=== PATIENT | male | born 1940 | race American Indian/Alaskan Native ===

== ENCOUNTER 2017-06-05 11:50 | Emergency (ER) | payer MEDICARE ==
[2017-06-05] MEDS ORDERED: ZOFRAN IV ONE (12:28)
--- NOTE | 2017-06-05 12:55 | Emergency Department Report ---
HPI - General Chief Complaint: Nausea/Vomiting/Diarrhea Time Seen by Provider: 06/05/17 12:19 - HPI HPI: Room 8 The patient is a 77-year-old male presented with a chief complaint of nausea and vomiting. The patient is a very poor historian but acknowledges he has had a headache with nausea vomiting for the past 2-3 days. Patient denies chest pain. The patient's primary physician sent the patient to the ED after the patient failed outpatient therapy for the above symptoms. Primary physician documents acute renal failure, prerenal azotemia, uncontrolled diabetes and headache. When further questions are asked about the HPI the patient continues to to state "ask my ." The is not currently present Location: Head Duration: 3 days Quality: Headache Severity: Moderate Modifying factors: [see above] Context: [see above] Mode of transportation: [not driving] ED Past Medical Hx - Family History Family history: no significant ED Review of Systems ROS: Stated complaint: HEADACHE Other details as noted in HPI Comment: Unobtainable due to pts medical conditions Gastrointestinal: nausea, vomiting Neurological: headache Physical Exam - Physical Exam Physical Exam: GENERAL: The patient is well-developed well-nourished male lying on stretcher with frequent gagging. [] HEENT: Normocephalic. Atraumatic. Extraocular motions are intact. Patient has moist mucous membranes. NECK: Supple. No meningitic signs are noted. Trachea midline CHEST/LUNGS: Clear to auscultation. There is no respiratory distress noted. HEART/CARDIOVASCULAR: Regular. There is no tachycardia. There is no gallop rub or murmur. ABDOMEN: Abdomen is soft, nontender. Patient has normal bowel sounds. There is no abdominal distention. SKIN: There is no rash. There is no edema. There is no diaphoresis. NEURO: The patient is awake, alert, and oriented. The patient is cooperative. The patient has no focal neurologic deficits. The patient has normal speech. Cranial nerves II through XII grossly intact, no drift. Moves all extremities well MUSCULOSKELETAL: There is no evidence of acute injury. ED Course - Consultations Consultation #1: 06/05/17 15:00 [place] transfer line called- awaiting call back 06/05/17 15:[address] Lee- will accept patient in transfer to [facility] ED. Recommends given Keppra 1 g IV ED Medical Decision Making - Lab Data Result diagrams: 10/26/17 12:20 06/05/17 13:50 Laboratory Tests 06/05/17 06/05/17 06/05/17 12:20 13:20 13:50 WBC 19.0 H RBC 5.09 H Hgb 15.6 H Hct 45.3 MCV 89 MCH 31 MCHC 35 H RDW 13.2 Plt Count 344 Lymph % (Auto) 3.3 L [place] % (Auto) 6.4 Eos % (Auto) 0.0 Baso % (Auto) 0.5 Lymph # 0.6 L [place] # 1.2 H Eos # 0.0 Baso # 0.1 Seg Neutrophils % 89.8 H Seg Neutrophils # 17.1 H Sodium 136 L Potassium 3.6 Chloride 96.0 L Carbon Dioxide 26 Anion Gap 18 BUN 18 Creatinine 0.7 L Estimated GFR > 60 BUN/Creatinine Ratio 26 Glucose 247 H Calcium 8.7 Total Bilirubin 0.90 AST 23 ALT 19 Alkaline Phosphatase 77 Total Creatine Kinase 457 H CK-MB (CK-2) 4.1 H CK-MB (CK-2) Rel Index 0.8 Troponin T < 0.010 Total Protein 6.6 Albumin 3.7 L Albumin/Globulin Ratio 1.3 Urine Color Yellow Urine Turbidity Clear Urine pH 6.0 Ur Specific [place] 1.028 Urine Protein 100 mg/dl Urine Glucose (UA) >=500 Urine Ketones 80 Urine Blood Mod Urine Nitrite Neg Urine Bilirubin Neg Urine Urobilinogen < 2.0 Ur Leukocyte Esterase Neg Urine WBC (Auto) < 1.0 Urine RBC (Auto) 2.0 Urine Mucus 2+ - Radiology Data Radiology results: report reviewed (CT head), image reviewed (CT head) CT head (read by radiologist)-subacute right subdural hemorrhage. Volume loss. Chronic white matter changes. - Differential Diagnosis ICH, migraine, ACS, renal failure Critical care attestation.: If time is entered above; I have spent that time in minutes in the direct care of this critically ill patient, excluding procedure time. ED Disposition Clinical Impression: Subdural hematoma, Headache, Nausea & vomiting Disposition: DC/TX-70 ANOTHER TYPE HLTHCARE Is pt being admited?: No Does the pt Need Aspirin: No Condition: Serious Referrals: PRIMARY CARE, [Primary Care Provider] - 3-5 Days Time of Disposition: 15:14 (awaiting transport)
[2017-06-05 14:06] LABS: Bilirubin,Urine NEG (Negative); Blood,Urine MOD (Negative); Ketones,Urine 80 mg/dL (Negative); Leukocyte Esterase,Urine NEG (Negative); Mucus,Urine 2+ /HPF; Nitrite,Urine NEG (Negative); Urobilinogen,Urine < 2.0 mg/dL (<2.0); WBC,Urine < 1.0 /HPF (0.0-6.0)
[2017-06-05 14:21] LABS: Creatine Kinase MB 4.1 ng/mL (0.0-4.0)
[2017-06-05 14:22] LABS: Alanine Aminotransferase 19 units/L (7-56); Albumin 3.7 g/dL (3.9-5); Albumin/Globulin Ratio 1.3 %; Alkaline Phosphatase 77 units/L (35-129); Anion Gap 18 mmol/L; BUN/Creatinine Ratio 26; Blood Urea Nitrogen 18 mg/dL (9-20); Calcium 8.7 mg/dL (8.4-10.2); Carbon Dioxide 26 mmol/L (22-30); Creatine Kinase 457 units/L (55-170); Glucose 247 mg/dL (75-100); Potassium 3.6 mmol/L (3.6-5.0); Sodium 136 mmol/L (137-145); Total Protein 6.6 g/dL (6.3-8.2)
--- NOTE | 2017-06-05 14:49 | Cat Scan Report ---
CT HEAD WITHOUT CONTRAST: HISTORY: Headache, nausea and vomiting. Serial contiguous axial images were obtained through the cranium. Intravenous contrast material was not administered. No comparison CT head at this facility. An intermittent density right subdural collection is identified measuring up to 6-7 mm in thickness. This is consistent with a subacute right subdural hematoma. The hematoma extends to involve the tentorium as well. There is no significant mass effect secondary to mild atrophy. No midline shift. Moderate chronic white matter changes are identified bilaterally. No evidence for intraparenchymal hemorrhage, large area of acute ischemia or mass. Ventricular size is within normal limits. No chronic infarct. No acute calvarial fracture. Chronic left medial orbital wall fracture is noted. IMPRESSION: Subacute right subdural hemorrhage as outlined above. Volume loss. Chronic white matter changes. These findings were discussed with Dr. Rubio in the emergency department at 1430 hrs.
[2017-06-05] MEDS ORDERED: KEPPRA 1,000 MG/NS 0.75% 100ML 1,000 MG/100 ML BAG IV ONE (15:13)
[2017-06-05 15:39] LABS: Basophils % (Auto) 0.5 % (0.0-1.8); Hematocrit 45.3 % (35.5-45.6); Hemoglobin 15.6 gm/dl (11.8-15.2); Mean Corpuscular HGB Conc 35 % (32-34); Mean Corpuscular Hemoglobin 31 pg (28-32); Mean Corpuscular Volume 89 fl (84-94); Platelet Count 344 K/mm3 (140-440); Red Blood Count 5.09 M/mm3 (3.65-5.03); Red Cell Distribution Width 13.2 % (13.2-15.2)
[2017-06-05 15:51] LABS: Partial Thromboplastin Time 27.6 Sec. (24.2-36.6)
[2017-06-05 17:10] VITALS: BP 129/72
== END 2017-06-05 17:25 | disposition other institution (70) ==
LOC: ED 11:50
DX: I62.00 Nontraumatic subdural hemorrhage, unspecified (principal)
CPT/HCPCS: 36415; 70450; 80053; 81001; 82550; 82553; 84484; 85025; 85610; 85730; 87040; 93005; 93010; 96374; 96375; 99285; J1953; J2405

== ENCOUNTER 2018-03-30 09:43 | Emergency (ER) | payer MEDICARE ==
[2018-03-30 09:59] VITALS: BP 131/80
--- NOTE | 2018-03-30 11:22 | Emergency Department Report ---
ED Male HPI - General Chief complaint: Urogenital-Male Stated complaint: BLOOD IN URINE Time Seen by Provider: 03/30/18 11:13 Source: patient Mode of arrival: Ambulatory Limitations: No Limitations - History of Present Illness Initial comments: Mr. Catalan is a healthy 78-year-old male who presents with painless hematuria over the last week. He had 2 episodes of breanne blood with urination this weekend. The first episode occurred 1 week ago Friday. He denies any pain. Denies any serious or back pain. No previous history of kidney disease according to his report. He is currently being followed by [facility] for previous head injury. 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 He is undergoing psychological testing for flight clearance. Otherwise he has been in good health. His PCP Dr. Longoria is currently on vacation. MD Complaint: other (hematuria) -: Sudden, week(s) (1) Severity: mild - Related Data Previous Rx's Medication Instructions Recorded Last Taken Type Cephalexin [Keflex] 500 mg PO QID 28 Days #7 capsule 03/30/18 Unknown Rx Allergies Allergy/AdvReac Type Severity Reaction Status Date / Time No Known Allergies Allergy Verified 03/30/18 09:59 ED Review of Systems ROS: Stated complaint: BLOOD IN URINE Other details as noted in HPI Comment: All other systems reviewed and negative Constitutional: denies: fever, malaise Respiratory: denies: cough Cardiovascular: denies: chest pain ED Past Medical Hx - Past Medical History Hx Diabetes: Yes (Pt denies.) Additional medical history: KIDNEY FAILURE. GI BLEED - Surgical History Past Surgical History?: No - Social History Smoking Status: Never Smoker Substance Use Type: None - Medications Home Medications: Home Medications Medication Instructions Recorded Confirmed Last Taken Type Cephalexin [Keflex] 500 mg PO QID 28 Days #7 capsule 03/30/18 Unknown Rx ED Physical Exam - General Limitations: No Limitations General appearance: alert, in no apparent distress - Head Head exam: Present: atraumatic, normocephalic - Eye Eye exam: Present: normal appearance - ENT ENT exam: Present: mucous membranes moist - Neck Neck exam: Present: normal inspection. Absent: tenderness, meningismus - Respiratory Respiratory exam: Present: normal lung sounds bilaterally. Absent: respiratory distress, wheezes, rales, rhonchi - Cardiovascular Cardiovascular Exam: Present: regular rate, normal rhythm, normal heart sounds. Absent: systolic murmur, diastolic murmur, rubs, gallop - GI/Abdominal GI/Abdominal exam: Present: soft, normal bowel sounds. Absent: distended, tenderness, guarding, rebound - Rectal Rectal exam: Present: deferred - Extremities Exam Extremities exam: Present: normal inspection - Back Exam Back exam: Present: normal inspection - Neurological Exam Neurological exam: Present: alert, oriented X3 - Psychiatric Psychiatric exam: Present: normal affect, normal mood - Skin Skin exam: Present: warm, dry, intact, normal color. Absent: rash ED Course Vital Signs 03/30/18 09:55 Temperature 98.2 F Pulse Rate 89 Respiratory 17 Rate Blood Pressure 131/80 O2 Sat by Pulse 98 Oximetry ED Medical Decision Making - Lab Data Laboratory Tests 03/30/18 10:08 Urine Color Dark yellow Urine Turbidity Clear Urine pH 5.0 Ur Specific [place] 1.030 Urine Protein 100 mg/dl Urine Glucose (UA) 500 Urine Ketones Negative Urine Blood Negative Urine Nitrite Negative Ur Reducing Substances Not Reportable Urine Bilirubin Negative Urine Ictotest Not Reportable Urine Urobilinogen 0.0 Ur Leukocyte Esterase Negative Urine WBC (Auto) 3.0 Urine RBC (Auto) 5.0 Hyaline Casts 1 Urine Mucus 1+ Urine Sperm 3+ - Medical Decision Making Mr. Catalan presents with painless hematuria. Differential diagnosis includes infection, malignancy, urethral injury. I referred Mr. Catalan to urologist materials planner/production planner. UA remarkable for microscopic hematuria and glucosuria. I will prescribe cephalexin. Critical care attestation.: If time is entered above; I have spent that time in minutes in the direct care of this critically ill patient, excluding procedure time. ED Disposition Clinical Impression: Hematuria Disposition: DC-01 TO HOME OR SELFCARE Is pt being admited?: No Does the pt Need Aspirin: No Condition: Stable Instructions: Acute Hematuria (ED) Prescriptions: Cephalexin [Keflex] 500 mg PO QID 28 Days #7 capsule Referrals: ANGELES CARY MD [Staff Physician] - 3-5 Days Time of Disposition: 12:26
[2018-03-30 12:01] LABS: Hyaline Casts,Urine 1 /LPF; Mucus,Urine 1+ /HPF; Sperm,Urine 3+ /HPF (NP)
[2018-03-30 12:13] LABS: Color,Urine Dark Yellow (Yellow)
[2018-03-30 12:14] LABS: Bilirubin,Urine Negative (Negative)
[2018-03-30 12:15] LABS: Blood,Urine Negative (Negative)
== END 2018-03-30 13:08 | disposition home or self-care (01) ==
LOC: ED 09:43
DX: R31.9 Hematuria, unspecified (principal)
CPT/HCPCS: 81001; 99283

== ENCOUNTER 2019-02-09 16:58 | Inpatient (IN) | payer MEDICARE ==
--- NOTE | 2019-02-09 17:17 | Emergency Department Report ---
Blank Doc - Documentation Documentation: This is a 79-year-old male that presents with confusion, difficulty walking, and weakness. is present at triage. denies any complaints of one sided weakness. No slurred speech. This initial assessment/diagnostic orders/clinical plan/treatment(s) is/are subject to change based on patient's health status, clinical progression and re- assessment by fellow clinical providers in the ED. Further treatment and workup at subsequent clinical providers discretion. Patient/guardians urged not to elope from the ED as their condition may be serious if not clinically assessed and managed. Initial orders include: 1- Patient sent to MAIN ED for further evaluation and treatment 2- labs 3- UA 4- CT head
--- NOTE | 2019-02-09 17:42 | Emergency Department Report ---
- General Chief complaint: Weakness Stated complaint: DR REFERRAL/WEAKNESS/SHAKING Time Seen by Provider: 02/09/19 17:15 Source: patient Mode of arrival: Wheelchair Limitations: No Limitations - History of Present Illness Initial comments: This is a 79-year-old -Indian male who was sent by his PCP to the ED because apparently 3 days ago he was acting normally, doing all his ADLs, and since he has been very confused, delirious, complaining of generalized weakness. Patient has a history of hypertension, subdural hematoma, is accompanied by , who help with the history. She denies any recent travel, sick contacts, fever, chills or night sweats. Patient was not started on any new medications, and he didn't have any recent trauma. Onset/Timin -: Gradual, days(s) - Related Data Previous Rx's Medication Instructions Recorded Last Taken Type Cephalexin [Keflex] 500 mg PO QID 28 Days #7 capsule 03/30/18 Unknown Rx Allergies Allergy/AdvReac Type Severity Reaction Status Date / Time No Known Allergies Allergy Verified 03/30/18 09:59 ED Review of Systems ROS: Stated complaint: DR REFERRAL/WEAKNESS/SHAKING Other details as noted in HPI Comment: All other systems reviewed and negative Constitutional: denies: chills Eyes: denies: eye pain ENT: denies: ear pain, throat pain Respiratory: denies: cough, orthopnea Genitourinary: denies: dysuria Musculoskeletal: denies: back pain Skin: denies: rash, lesions Neurological: weakness ED Past Medical Hx - Past Medical History Hx Diabetes: Yes (Pt denies.) Hx of Cancer: Yes (Prostate) Additional medical history: KIDNEY FAILURE, Head Injury. GI BLEED - Surgical History Past Surgical History?: Yes Additional Surgical History: Seed implants - Family History Family history: hypertension - Social History Smoking Status: Never Smoker Substance Use Type: None - Medications Home Medications: Home Medications Medication Instructions Recorded Confirmed Last Taken Type Cephalexin [Keflex] 500 mg PO QID 28 Days #7 capsule 03/30/18 Unknown Rx ED Physical Exam - General Limitations: No Limitations General appearance: alert, in no apparent distress - Head Head exam: Present: atraumatic, normocephalic - Eye Eye exam: Present: normal appearance, PERRL, EOMI Pupils: Present: normal accommodation - ENT ENT exam: Present: normal exam, normal orophraynx - Neck Neck exam: Present: normal inspection - Respiratory Respiratory exam: Present: normal lung sounds bilaterally - Cardiovascular Cardiovascular Exam: Present: regular rate, normal rhythm - GI/Abdominal GI/Abdominal exam: Present: soft, normal bowel sounds - Neurological Exam Neurological exam: Present: altered, CN II-XII intact - Psychiatric Psychiatric exam: Present: normal affect, normal mood - Skin Skin exam: Present: warm - Assessment Assessment Interval: Baseline - Level of Consciousness 1a. Level of Consciousness: alert/keenly responsive - LOC Questions 1b. LOC Questions: answers both correctly - LOC Command 1c. LOC Commands: performs tasks correctly - Best Gaze 2. Best Gaze: normal - Visual 3. Visual: no visual loss - Facial Palsy 4. Facial Palsy: normal symmetrical movement - Motor Arm 5a. Motor Arm Left: no drift 5b. Motor Arm Right: no drift - Motor Leg 6a. Motor Leg Left: no drift 6b. Motor Leg Right: no drift - Limb Ataxia 7. Limb Ataxia: absent - Sensory 8. Sensory: normal - Best Language 9. Best Language: no aphasia - Dysarthria 10. Dysarthria: normal - Extinction and Inattention 11. Extinction/Inattention: no abnormality - Scoring Total Score: 0 Stroke Severity: No Stroke Symptoms ED Course Vital Signs 02/09/19 02/09/19 02/09/19 17:15 17:29 17:30 Temperature 98.8 F Pulse Rate 87 92 H 94 H Respiratory 16 21 16 Rate Blood Pressure 143/86 143/86 O2 Sat by Pulse 96 Oximetry 02/09/19 02/09/19 17:46 18:00 Temperature Pulse Rate 96 H Respiratory 29 H Rate Blood Pressure 143/86 O2 Sat by Pulse 94 96 Oximetry ED Medical Decision Making - Lab Data Result diagrams: 02/09/19 17:42 02/09/19 17:42 - Medical Decision Making 79-year-old male here with altered mental status, he became severely agitated in ED once his left, very altered, disoriented to person, place, time, he was given Ativan 1 mg IV for his agitation. Patient will be admitted for further workup of his altered mental status. Critical care attestation.: If time is entered above; I have spent that time in minutes in the direct care of this critically ill patient, excluding procedure time. ED Disposition Clinical Impression: Altered mental status Qualifiers: Altered mental status type: delirium Qualified Code(s): R41.0 - Disorientation, unspecified Disposition: DC-09 OP ADMIT IP TO THIS HOSP Is pt being admited?: Yes Does the pt Need Aspirin: No Condition: Stable
[2019-02-09 18:07] LABS: Basophils % (Auto) 0.6 % (0.0-1.8); Eosinophils % (Auto) 0.1 % (0.0-4.3); Hematocrit 45.4 % (35.5-45.6); Lymphocytes # (Auto) 0.2 K/mm3 (1.2-5.4); Mean Corpuscular HGB Conc 35 % (32-34); Mean Corpuscular Volume 90 fl (84-94); Monocytes # (Auto) 0.5 K/mm3 (0.0-0.8); Platelet Count 166 K/mm3 (140-440); Red Blood Count 5.03 M/mm3 (3.65-5.03); Red Cell Distribution Width 14.1 % (13.2-15.2)
--- NOTE | 2019-02-09 18:13 | XRay Report ---
CHEST 1 VIEW 5:33 PM INDICATION / CLINICAL INFORMATION: Altered Mental Status. COMPARISON: None available. FINDINGS: SUPPORT DEVICES: None. HEART / MEDIASTINUM: The heart size is normal with a left ventricular configuration. Pulmonary vascul ature is normal. The aorta is tortuous without aneurysm. LUNGS / PLEURA: No significant pulmonary or pleural abnormality. No pneumothorax. ADDITIONAL FINDINGS: There are advanced degenerative changes involving both glenohumeral joints. IMPRESSION: No acute findings. Signer Name: Evan Lovell MD Signed: 02/09/2019 5:09 PM Workstation Name: [id number]
[2019-02-09 18:17] LABS: INR 1.26 (0.87-1.13)
[2019-02-09 18:18] LABS: Partial Thromboplastin Time 29.2 Sec. (24.2-36.6)
[2019-02-09 18:31] LABS: Alanine Aminotransferase 27 units/L (7-56); BUN/Creatinine Ratio 19; Blood Urea Nitrogen 19 mg/dL (9-20); Calcium 9.5 mg/dL (8.4-10.2); Hemolysis Index 29
--- NOTE | 2019-02-09 18:48 | Cat Scan Report ---
CT BRAIN: 02/09/2019 INDICATION / CLINICAL INFORMATION: Altered Mental Status. COMPARISON: 06/05/2017 FINDINGS: BRAIN/INTRACRANIAL STRUCTURES: Unenhanced CT images of the brain demonstrate no evidence of acute int racranial abnormality. Ventricles and sulci are prominent in size, consistent with diffuse cerebral atrophy. Chronic white m atter hypoattenuation is present throughout the cerebral hemispheric white matter. There is no evidence of acute ischemic injury, hemorrhage, or mass. Subdural hematoma seen at the junito e of the prior exam is no longer present. EXTRACRANIAL STRUCTURES: Unremarkable. IMPRESSION: No acute abnormality. Diffuse cerebral atrophy. All CT scans at this location are performed using dose reduction to ALARA by means of automated expos ure control. Signer Name: Nicanor Chowdhury MD Signed: 02/09/2019 5:44 PM Workstation Name: [id number]
[2019-02-09 22:02] LABS: Bilirubin,Urine NEG (Negative); Blood,Urine MOD (Negative); Calcium Oxalate Crystals,Urine 1+; Color,Urine Yellow (Yellow); Mucus,Urine FEW /HPF
[2019-02-09] MEDS ORDERED: ATIVAN IV ONE (22:16)
[2019-02-09] MEDS ORDERED: ATIVAN ONE (22:19)
[2019-02-09] MEDS ORDERED: ZOFRAN IV PRN (22:52)
[2019-02-09] MEDS ORDERED: SODIUM CHLORIDE FLUSH SYRINGE 10 ML IV PRN (22:52)
[2019-02-09] MEDS ORDERED: PERCOCET 5/325 PO PRN (22:52)
[2019-02-09] MEDS ORDERED: NACL 0.45% 1000 ML 1,000 ML IV SCH (23:45)
--- NOTE | 2019-02-10 00:37 | History and Physical Report ---
History of Present Illness Date of examination: 02/09/19 Date of admission: 02/09/19 22:52 Chief complaint: AMS History of present illness: 79 y.o -Martiniquais older adult male history of HTN, subdural hematoma (05/27), prostate cancer ( s/p seed implantation), and GI bleed who was referred by his PCP (Dr. Longoria) for altered mental status. Pt is a poor historian and unable to contribute to history taking. History is taken from medical records and ED physician. At the time of my examination there is no family present at the bedside. I was told that his was at the present at bedside but had to leave because she is unable to drive in the night. According to pt's pt has been confused, delirious, unable to perform ADL's, and has displayed generalized weakness for the past 3 days. denies recent falls, recent head injury/trauma, initiation of new medication. Past History Past Medical History: cancer (prostate), diabetes, hypertension, renal failure, other (subdural hematoma 05/27, GI bleed) Past Surgical History: Other (seed implants) Social history: , lives with family Family history: no significant family history Medications and Allergies Allergies Allergy/AdvReac Type Severity Reaction Status Date / Time No Known Allergies Allergy Verified 03/30/18 09:59 Active Meds: Active Medications Acetaminophen (Tylenol) 650 mg PO Q4H PRN PRN Reason: Pain MILD(1-3)/Fever >100.5/SHAH Heparin Sodium (Porcine) (Heparin) 5,000 unit SUB-Q Q12HR ADALBERTO Sodium Chloride (Nacl 0.45% 1000 Ml) 1,000 mls @ 75 mls/hr IV DIRECT ADALBERTO Stop: 02/10/19 23:44 Ondansetron HCl (Zofran) 4 mg IV Q8H PRN PRN Reason: Nausea And Vomiting Sodium Chloride (Sodium Chloride Flush Syringe 10 Ml) 10 ml IV BID ADALBERTO Sodium Chloride (Sodium Chloride Flush Syringe 10 Ml) 10 ml IV PRN PRN PRN Reason: LINE FLUSH Review of Systems ROS unobtainable: due to mental status Exam - Physical Exam Narrative exam: Physical exam General appearance: Present: No acute distress, confused, awake, oriented to self, well-developed old - EENT Eyes: Present: PERRL, EOM intact ENT: hearing intact, poor dentition - Neck Neck: Present: supple, normal ROM - Respiratory Respiratory effort: Non-labored Respiratory: bilateral: diminished (bases) - Cardiovascular Heart rate:87 (bpm) Rhythm: regular Heart Sounds: Present: S1 & S2. Absent: rub, click - Extremities Extremities: no ischemia, pulses intact, - Peripheral Assessment Peripheral Pulses: within normal limits - Abdominal General gastrointestinal: soft, non-tender, normal bowel sounds - Integumentary Integumentary: Present: warm, dry - Musculoskeletal Musculoskeletal: generalized weakness, able to move all extremities -Neurological Neurological: CN II-XII intact - Psychiatric Psychiatric: Confused, cooperative - Constitutional Vitals: Temp Pulse Resp BP Pulse Ox 98.8 F 77 20 128/71 98 02/09/19 17:15 02/09/19 23:46 02/09/19 23:46 02/09/19 23:46 02/09/19 20:16 Results - Labs CBC & Chem 7: 02/09/19 17:42 02/09/19 17:42 Labs: Laboratory Last Values WBC 4.4 K/mm3 (4.5-11.0) L 02/09/19 17:42 RBC 5.03 M/mm3 (3.65-5.03) 02/09/19 17:42 Hgb 16.0 gm/dl (11.8-15.2) H 02/09/19 17:42 Hct 45.4 % (35.5-45.6) 02/09/19 17:42 MCV 90 fl (84-94) 02/09/19 17:42 MCH 32 pg (28-32) 02/09/19 17:42 MCHC 35 % (32-34) H 02/09/19 17:42 RDW 14.1 % (13.2-15.2) 02/09/19 17:42 Plt Count 166 K/mm3 (140-440) 02/09/19 17:42 Lymph % (Auto) 5.0 % (13.4-35.0) L 02/09/19 17:42 [place] % (Auto) 11.0 % (0.0-7.3) H 02/09/19 17:42 Eos % (Auto) 0.1 % (0.0-4.3) 02/09/19 17:42 Baso % (Auto) 0.6 % (0.0-1.8) 02/09/19 17:42 Lymph # 0.2 K/mm3 (1.2-5.4) L 02/09/19 17:42 [place] # 0.5 K/mm3 (0.0-0.8) 02/09/19 17:42 Eos # 0.0 K/mm3 (0.0-0.4) 02/09/19 17:42 Baso # 0.0 K/mm3 (0.0-0.1) 02/09/19 17:42 Seg Neutrophils % 83.3 % (40.0-70.0) H 02/09/19 17:42 Seg Neutrophils # 3.7 K/mm3 (1.8-7.7) 02/09/19 17:42 PT 15.5 Sec. (12.2-14.9) H 02/09/19 17:42 INR 1.26 (0.87-1.13) H 02/09/19 17:42 APTT 29.2 Sec. (24.2-36.6) 02/09/19 17:42 Sodium 139 mmol/L (137-145) 02/09/19 17:42 Potassium 4.0 mmol/L (3.6-5.0) 02/09/19 17:42 Chloride 103.2 mmol/L (98-107) 02/09/19 17:42 Carbon Dioxide 24 mmol/L (22-30) 02/09/19 17:42 16 mmol/L 02/09/19 17:42 BUN 19 mg/dL (9-20) 02/09/19 17:42 1.0 mg/dL (0.8-1.5) 02/09/19 17:42 Estimated GFR > 60 ml/min 02/09/19 17:42 19 % 02/09/19 17:42 Glucose 139 mg/dL (75-100) H 02/09/19 17:42 Lactic Acid 1.80 mmol/L (0.7-2.0) 02/09/19 17:42 Calcium 9.5 mg/dL (8.4-10.2) 02/09/19 17:42 1.10 mg/dL (0.1-1.2) 02/09/19 17:42 AST 34 units/L (5-40) 02/09/19 17:42 ALT 27 units/L (7-56) 02/09/19 17:42 77 units/L (35-129) 02/09/19 17:42 238 units/L (55-170) H 02/09/19 17:42 6.7 g/dL (6.3-8.2) 02/09/19 17:42 4.0 g/dL (3.9-5) 02/09/19 17:42 1.5 % 02/09/19 17:42 Yellow (Yellow) 02/09/19 19:14 Slightly-cloudy (Clear) 02/09/19 19:14 5.0 (5.0-7.0) 02/09/19 19:14 Ur Specific [place] 1.024 (1.003-1.030) 02/09/19 19:14 100 mg/dl mg/dL (Negative) 02/09/19 19:14 Neg mg/dL (Negative) 02/09/19 19:14 Neg mg/dL (Negative) 02/09/19 19:14 Mod (Negative) 02/09/19 19:14 Neg (Negative) 02/09/19 19:14 Neg (Negative) 02/09/19 19:14 2.0 mg/dL (<2.0) 02/09/19 19:14 Ur Leukocyte Esterase Neg (Negative) 02/09/19 19:14 1.0 /HPF (0.0-6.0) 02/09/19 19:14 3.0 /HPF (0.0-6.0) 02/09/19 19:14 U Epithel Cells (Auto) < 1.0 /HPF (0-13.0) 02/09/19 19:14 Calcium Oxalate Crystal 1+ 02/09/19 19:14 Few /HPF 02/09/19 19:14 - Imaging and Cardiology Chest x-ray: report reviewed (No significant pulmonary or pleural abnormality. No pneumothorax. ), image reviewed CT Scan - head: report reviewed (IMPRESSION: No acute abnormality. Diffuse cerebral atrophy), image reviewed Assessment and Plan Assessment and plan: 79 y.o -[place] older adult male history of HTN, subdural hematoma (05/27), prostate cancer ( s/p seed implantation), and GI bleed who was referred by his PCP (Dr. Longoria) for altered mental status. At the time of my examination pt is awake and oriented to self. He is able to maintain conversation but quickly becomes confused with inappropriate responses. CT Head showed diffuse cerebral atrophy but no acute abnormality. Acute encephalopathy DM Neutropenia HTN Hx of subdural hematoma 05/27 Plan: Continue supportive care Hydrate with NS @1/2 NS @ 75ml/hr Urine analysis negative for UTI Patient is a febrile Monitor CBC Blood culture and urine culture- pending Monitor BP Start Norvasc 5mg daily POC BG monitoring SSI coverage DVT PPX on heaprin Advance Directives: No VTE prophylaxis?: Chemical Plan of care discussed with patient/family: Yes
[2019-02-10] MEDS ORDERED: D50W (25GM) Syringe IV PRN (00:42)
[2019-02-10 05:40] LABS: Basophils # (Auto) 0.1 K/mm3 (0.0-0.1); Eosinophils % (Auto) 0.1 % (0.0-4.3); Hematocrit 43.9 % (35.5-45.6); Hemoglobin 15.4 gm/dl (11.8-15.2); Lymphocytes # (Auto) 0.4 K/mm3 (1.2-5.4); Lymphocytes % (Auto) 10.2 % (13.4-35.0); Mean Corpuscular HGB Conc 35 % (32-34); Mean Corpuscular Volume 90 fl (84-94); Monocytes # (Auto) 0.6 K/mm3 (0.0-0.8); Monocytes % (Auto) 14.5 % (0.0-7.3); Platelet Count 142 K/mm3 (140-440); Red Blood Count 4.86 M/mm3 (3.65-5.03); Red Cell Distribution Width 13.4 % (13.2-15.2)
[2019-02-10 05:56] LABS: BUN/Creatinine Ratio 17; Blood Urea Nitrogen 15 mg/dL (9-20); Calcium 9.1 mg/dL (8.4-10.2); Hemolysis Index 17
[2019-02-10] MEDS: TYLENOL PO PRN (08:40)
[2019-02-10] MEDS: HumuLIN R SUB-Q SCH ×4 (08:41→22:57)
[2019-02-10] MEDS: NORVASC PO SCH (09:10)
[2019-02-10] MEDS: SODIUM CHLORIDE FLUSH SYRINGE 10 ML IV SCH ×2 (09:14→22:11)
[2019-02-10] MEDS ORDERED: HEPARIN SUB-Q SCH (10:00)
[2019-02-10] MEDS ORDERED: VANCOMYCIN PHARMACY TO DOSE IV SCH (10:00)
--- NOTE | 2019-02-10 10:28 | Consultation ---
History of Present Illness - Reason for Consult Consult date: 02/10/19 Fever, AMS Requesting physician: NILO AYERS - History of Present Illness This patient is a 79-year-old male with a past medical history of HTN, subdural hematoma (05/27), prostate cancer (s/p seed implantation), and GI Bleed who was referred by his PCP, Dr. Longoria on 02/09/19 for altered mental status. Patient was unable to provide history.. His stated that he has been confused, delirious, unable to perform ADL's and had displayed generalized weakness for the past 3 days. denied recent falls, head injury/trauma or initiation of new medication. On admission WBC 4.4, Creatinine 1.0, Lactic acid 1.80, CK 238, Temperature 98.8, now 101.9, HR 79, BP 143/86. U/A w/o pyuria. Blood cultures in progress. CXR shows no consolidations. Head CT shows no evidence of acute ischemic injury, hemorrhage or mass.. Subdural hematoma seen at the time of prior exam is no longer present. Unable to obtain history due to mental status. History obtained from chart review. Past History Past Medical History: cancer (prostate), diabetes, hypertension, renal failure, other (subdural hematoma 05/27, GI bleed) Past Surgical History: Other (seed implants) Social history: , lives with family Family history: no significant family history Medications and Allergies Allergies Allergy/AdvReac Type Severity Reaction Status Date / Time No Known Allergies Allergy Verified 03/30/18 09:59 Active Meds: Active Medications Acetaminophen (Tylenol) 650 mg PO Q4H PRN PRN Reason: Pain MILD(1-3)/Fever >100.5/SHAH Last Admin: 02/10/19 08:40 Dose: 650 mg Documented by: Amlodipine Besylate (Norvasc) 5 mg PO QDAY [facility] Last Admin: 02/10/19 09:10 Dose: 5 mg Documented by: Dextrose (D50w (25gm) Syringe) 50 ml IV PRN PRN PRN Reason: Hypoglycemia Heparin Sodium (Porcine) (Heparin) 5,000 unit SUB-Q Q12HR [facility] Last Admin: 02/10/19 09:10 Dose: 5,000 unit Documented by: Sodium Chloride (Nacl 0.45% 1000 Ml) 1,000 mls @ 75 mls/hr IV DIRECT ADALBERTO Stop: 02/10/19 23:44 Last Admin: 02/10/19 08:38 Dose: 75 mls/hr Documented by: Vancomycin HCl 1,250 mg/ (Sodium Chloride) 275 mls @ 166.667 mls/hr IV ONCE ONE Stop: 02/10/19 12:38 Vancomycin HCl (Vancomycin/Ns 1 Gm/250 Ml) 1 gm in 250 mls @ 166.667 mls/hr IV Q12HR [facility] Insulin Human Regular (Humulin R) 0 units SUB-Q ACHS ADALBRETO; Protocol Last Admin: 02/10/19 08:41 Dose: Not Given Documented by: Ondansetron HCl (Zofran) 4 mg IV Q8H PRN PRN Reason: Nausea And Vomiting Sodium Chloride (Sodium Chloride Flush Syringe 10 Ml) 10 ml IV BID ADALBERTO Last Admin: 02/10/19 09:14 Dose: 10 ml Documented by: Sodium Chloride (Sodium Chloride Flush Syringe 10 Ml) 10 ml IV PRN PRN PRN Reason: LINE FLUSH Last Admin: 02/10/19 08:44 Dose: 10 ml Documented by: Review of Systems ROS unobtainable: due to mental status Physical Examination - Physical Exam Narrative exam: Constitutional: Alert, cooperative. No acute distress. Acute encephalopathy Head, Ears, Nose: Normocephalic, atraumatic. External ears, nose normal Eyes: Conjunctivae/corneas clear. No icterus. No ptosis. Neck: Supple, no meningeal signs Oral: dentition fair. No thrush. Cardiovascular: S1, S2 normal. Respiratory: Good air entry, clear to auscultation bilaterally GI: Soft, non-tender; bowel sounds normal. No peritoneal signs Musculoskeletal: No pedal edema, no cyanosis. Skin: No rash or abscess. Hem/Lymphatic: No palpable cervical or supraclavicular nodes. No lymphangitis Psych: Mood ok. Affect normal Neurological: Awake, alert, confused. follows simple commands - Constitutional Vitals: Vital Signs Temp Pulse Resp BP Pulse Ox 101.9 F H 89 18 132/78 95 02/10/19 07:34 02/10/19 10:00 02/10/19 10:00 02/10/19 09:10 02/10/19 10:00 Temperature -Last 24 Hours Temperature 101.9 F Temperature 98.2 F Temperature 98.2 F Temperature 98.8 F Results - Labs CBC & Chem 7: 02/10/19 04:33 02/10/19 04:33 Labs: Abnormal lab results 02/09/19 02/09/19 02/09/19 Range/Units 17:42 17:42 17:42 WBC 4.4 L (4.5-11.0) K/mm3 Hgb 16.0 H (11.8-15.2) gm/dl MCHC 35 H (32-34) % Lymph % (Auto) 5.0 L (13.4-35.0) % [place] % (Auto) 11.0 H (0.0-7.3) % Baso % (Auto) (0.0-1.8) % Lymph # 0.2 L (1.2-5.4) K/mm3 Seg Neutrophils % 83.3 H (40.0-70.0) % PT 15.5 H (12.2-14.9) Sec. INR 1.26 H (0.87-1.13) Glucose 139 H (75-100) mg/dL POC Glucose (70-105) Total Creatine Kinase 238 H (55-170) units/L 02/10/19 02/10/19 02/10/19 Range/Units 04:33 04:33 07:42 WBC 3.8 L (4.5-11.0) K/mm3 Hgb 15.4 H (11.8-15.2) gm/dl MCHC 35 H (32-34) % Lymph % (Auto) 10.2 L (13.4-35.0) % [place] % (Auto) 14.5 H (0.0-7.3) % Baso % (Auto) 2.0 H (0.0-1.8) % Lymph # 0.4 L (1.2-5.4) K/mm3 Seg Neutrophils % 73.2 H (40.0-70.0) % PT (12.2-14.9) Sec. INR (0.87-1.13) Glucose 154 H (75-100) mg/dL POC Glucose 115 H (70-105) Total Creatine Kinase (55-170) units/L - Imaging and Cardiology Chest x-ray: report reviewed ( no consolidations) CT Scan - head: report reviewed (no evidence of acute ischemic injury, hemmorahage or mass. Subdural hematoma seen at the time of prior exam is no longer present. ) Assessment and Plan I Cultures: 02/09/19 Blood: in progress A/P: 79-year-old male with a past medical history of HTN, subdural hematoma (05/27), prostate cancer (s/p seed implantation), and GI Bleed who was referred by his PCP, Dr. Longoria on 02/09/19 for altered mental status. Admitted with: 1. SIRS/ FUO: evidenced by leukopenia and fever not present on admission, now 101.9.. Etiology not clear. No leukocytosis. U/A negative. CXR no consolidation. Blood cultures in progress. Currently being treated with Vancomycin and Zosyn. 2. Acute Encephalopathy: unclear etiology. Head CT shows no evidence of acute ischemic injury, hemmorahage or mass. Will order LP and treat empirically for meningitis with Ceftriaxone, Vancomycin, Ampicillin and Ceftriaxone. 3. History of subdural hematoma 2017: Head CT shows subdural hematoma no longer present. 4. Type 2 Diabetes: recommend tight glycemic control. Recommendations: -Discontinue Zosyn -continue Vancomycin PK consult -Start ceftriaxone 2 gms IV q 12 -Start Ampicillin 2gms IV every 4 hours -Start Acyclovir 710mg IV every 8 hours -Order LP -Order CSF cell count with diff, glucose,total protein, viral PCR panel -follow-up blood cultures -order CRP , HIV, RPR -follow-up flu rapid d/w Dr. Tien Delatorre, [employer] [facility] M: [phone] O:[phone]
[2019-02-10] MEDS ORDERED: VANCOMYCIN 1,250 MG in NACL 0.9% 250ML 250 ML IV ONE (11:00)
--- NOTE | 2019-02-10 11:52 | Progress Note ---
Assessment and Plan Assessment and plan: Patient is a 79 yo man with a history of HTN, subdural hematoma (05/2017), prostate cancer (s/p seed implantation), and GI bleed who presented to [facility] ED by request of his PCP, Dr. Liang Longoria for acute onset of altered mental status/confusion. CT Head showed diffuse cerebral atrophy but no acute abnorma lity, pCXR unremarkable for pneumonia, and UA negative for UTI. On admission WBC 4.4, Creatinine 1.0, Lactic acid 1.80, CK 238, Temperature 98.8, now 101.9, HR 79, BP 143/86. U/A w/o pyuria. Blood cultures in progress. Acute metabolic encephalopathy, workup in progress FUO: consulted ID, started IV empiric Vancomycin/zosyn with close monitoring, ordered rapid flu DM type 2: ssi Neutropenia with SIRS and suspected Sepsis, poa: consult ID to locate source, ?need for LP HTN: norvasc and low salt diet Hx of subdural hematoma 05/27 Change to inpatient status History Interval history: Patient was seen and examined. Follow-up on current diagnosis of AMS. No overnight events reported to me. Patient is confused. Imaging, nursing note, chart, labs and old chart reviewed. Hospitalist Physical - Physical exam Narrative exam: Gen: WDWN, NAD, Awake, Alert, Orientated x 1 HEENT: NCAT, EOMI, PERRL, OP Clear Neck: supple, no adenopathy, no thyromegaly, no JVD CVS/Heart: RRR, normal S1S2, pulses present bilaterally Chest/Lungs: CTA B, Symmetrical chest expansion, good air entry bilaterally GI/Abdomen: soft, NTND, good bowel sounds, no guarding or rebound /Bladder: no suprapubic tenderness, no CVA or paraspinal tenderness Extermity/Skin: no c/c/e, no obvious rash MSK: FROM x 4 Neuro: CN 2-12 grossly intact, no new focal deficits, no meningeal signs Psych: calm - Constitutional Vitals: Temp Pulse Resp BP Pulse Ox 101.9 F H 89 18 132/78 95 02/10/19 07:34 02/10/19 10:00 02/10/19 10:00 02/10/19 09:10 02/10/19 10:00 Results - Labs CBC & Chem 7: 02/10/19 04:33 02/10/19 04:33 Labs: Laboratory Last Values WBC 3.8 K/mm3 (4.5-11.0) L 02/10/19 04:33 RBC 4.86 M/mm3 (3.65-5.03) 02/10/19 04:33 Hgb 15.4 gm/dl (11.8-15.2) H 02/10/19 04:33 Hct 43.9 % (35.5-45.6) 02/10/19 04:33 MCV 90 fl (84-94) 02/10/19 04:33 MCH 32 pg (28-32) 02/10/19 04:33 MCHC 35 % (32-34) H 02/10/19 04:33 RDW 13.4 % (13.2-15.2) 02/10/19 04:33 Plt Count 142 K/mm3 (140-440) 02/10/19 04:33 Lymph % (Auto) 10.2 % (13.4-35.0) L 02/10/19 04:33 [place] % (Auto) 14.5 % (0.0-7.3) H 02/10/19 04:33 Eos % (Auto) 0.1 % (0.0-4.3) 02/10/19 04:33 Baso % (Auto) 2.0 % (0.0-1.8) H 02/10/19 04:33 Lymph # 0.4 K/mm3 (1.2-5.4) L 02/10/19 04:33 [place] # 0.6 K/mm3 (0.0-0.8) 02/10/19 04:33 Eos # 0.0 K/mm3 (0.0-0.4) 02/10/19 04:33 Baso # 0.1 K/mm3 (0.0-0.1) 02/10/19 04:33 Seg Neutrophils % 73.2 % (40.0-70.0) H 02/10/19 04:33 Seg Neutrophils # 2.8 K/mm3 (1.8-7.7) 02/10/19 04:33 PT 15.5 Sec. (12.2-14.9) H 02/09/19 17:42 INR 1.26 (0.87-1.13) H 02/09/19 17:42 APTT 29.2 Sec. (24.2-36.6) 02/09/19 17:42 Sodium 141 mmol/L (137-145) 02/10/19 04:33 Potassium 3.6 mmol/L (3.6-5.0) 02/10/19 04:33 Chloride 105.2 mmol/L (98-107) 02/10/19 04:33 Carbon Dioxide 24 mmol/L (22-30) 02/10/19 04:33 15 mmol/L 02/10/19 04:33 BUN 15 mg/dL (9-20) 02/10/19 04:33 0.9 mg/dL (0.8-1.5) 02/10/19 04:33 Estimated GFR > 60 ml/min 02/10/19 04:33 17 % 02/10/19 04:33 Glucose 154 mg/dL (75-100) H 02/10/19 04:33 POC Glucose 145 (70-105) H 02/10/19 11:38 5.1 % (4-6) 02/10/19 04:33 Lactic Acid 1.80 mmol/L (0.7-2.0) 02/09/19 17:42 Calcium 9.1 mg/dL (8.4-10.2) 02/10/19 04:33 1.10 mg/dL (0.1-1.2) 02/09/19 17:42 AST 34 units/L (5-40) 02/09/19 17:42 ALT 27 units/L (7-56) 02/09/19 17:42 77 units/L (35-129) 02/09/19 17:42 238 units/L (55-170) H 02/09/19 17:42 6.7 g/dL (6.3-8.2) 02/09/19 17:42 4.0 g/dL (3.9-5) 02/09/19 17:42 1.5 % 02/09/19 17:42 Yellow (Yellow) 02/09/19 19:14 Slightly-cloudy (Clear) 02/09/19 19:14 5.0 (5.0-7.0) 02/09/19 19:14 Ur Specific [place] 1.024 (1.003-1.030) 02/09/19 19:14 100 mg/dl mg/dL (Negative) 02/09/19 19:14 Neg mg/dL (Negative) 02/09/19 19:14 Neg mg/dL (Negative) 02/09/19 19:14 Mod (Negative) 02/09/19 19:14 Neg (Negative) 02/09/19 19:14 Neg (Negative) 02/09/19 19:14 2.0 mg/dL (<2.0) 02/09/19 19:14 Ur Leukocyte Esterase Neg (Negative) 02/09/19 19:14 1.0 /HPF (0.0-6.0) 02/09/19 19:14 3.0 /HPF (0.0-6.0) 02/09/19 19:14 U Epithel Cells (Auto) < 1.0 /HPF (0-13.0) 02/09/19 19:14 Calcium Oxalate Crystal 1+ 02/09/19 19:14 Few /HPF 02/09/19 19:14 Active Medications - Current Medications Current Medications: Generic Name Dose Route Start Last Admin Trade Name Freq PRN Reason Stop Dose Admin Acetaminophen 650 mg 02/09/19 22:52 02/10/19 08:40 Tylenol PO 650 mg Q4H PRN Administration Pain MILD(1-3)/Fever >100.5/SHAH Amlodipine Besylate 5 mg 02/10/19 10:00 02/10/19 09:10 Norvasc PO 5 mg QDAY ADALBERTO Administration Dextrose 50 ml 02/10/19 00:42 D50w (25gm) Syringe IV PRN PRN Hypoglycemia Heparin Sodium (Porcine) 5,000 unit 02/10/19 10:00 02/10/19 09:10 Heparin SUB-Q 5,000 unit Q12HR ADALBERTO Administration Sodium Chloride 1,000 mls @ 75 mls/hr 02/09/19 23:45 02/10/19 08:38 Nacl 0.45% 1000 Ml IV 02/10/19 23:44 75 mls/hr DIRECT ADALBERTO Administration Vancomycin HCl 1,250 mg/ 275 mls @ 166.667 mls/hr 02/10/19 11:00 02/10/19 11:35 Sodium Chloride IV 02/10/19 12:38 166.667 mls/hr ONCE ONE Administration Vancomycin HCl 1 gm in 250 mls @ 166.667 mls/hr 02/10/19 22:00 Vancomycin/Ns 1 Gm/250 Ml IV Q12HR [facility] Insulin Human Regular 0 units 02/10/19 07:30 02/10/19 11:42 Humulin R SUB-Q Not Given ACHS [facility] Protocol Ondansetron HCl 4 mg 02/09/19 22:52 Zofran IV Q8H PRN Nausea And Vomiting Sodium Chloride 10 ml 02/10/19 10:00 02/10/19 09:14 Sodium Chloride Flush Syringe 10 Ml IV 10 ml BID ADALBERTO Administration Sodium Chloride 10 ml 02/09/19 22:52 02/10/19 08:44 Sodium Chloride Flush Syringe 10 Ml IV 10 ml PRN PRN Administration LINE FLUSH
[2019-02-10] MEDS ORDERED: ZOSYN/NS 4.5GM/100ML 4.5 GM/100 ML VIAL IV SCH (14:00)
[2019-02-10] MEDS: AMPICILLIN/NS 2 GM/100 ML 2 GM/100 ML BAG IV SCH ×3 (14:59→22:10)
[2019-02-10] MEDS: NACL 0.9% IV SCH ×2 (15:00→22:09)
[2019-02-10] MEDS: ZOVIRAX IV SCH ×2 (15:00→22:09)
[2019-02-10] MEDS: ROCEPHIN/NS 2 GM/100 ML 2 GM/100 ML BAG IV SCH (15:40)
[2019-02-10] MEDS ORDERED: HALDOL IM STA (17:16)
[2019-02-10] MEDS: VANCOMYCIN/NS 1 GM/250 ML 1 GM/250 ML BAG IV SCH (22:10)
[2019-02-11] MEDS: ROCEPHIN/NS 2 GM/100 ML 2 GM/100 ML BAG IV SCH (00:41)
[2019-02-11] MEDS: AMPICILLIN/NS 2 GM/100 ML 2 GM/100 ML BAG IV SCH ×3 (02:15→09:28)
[2019-02-11] MEDS: ZOVIRAX IV SCH ×3 (05:00→21:47)
[2019-02-11] MEDS: NACL 0.9% IV SCH ×3 (05:00→21:47)
[2019-02-11] MEDS: HumuLIN R SUB-Q SCH ×4 (08:47→21:49)
[2019-02-11] MEDS: VANCOMYCIN/NS 1 GM/250 ML 1 GM/250 ML BAG IV SCH (09:30)
[2019-02-11] MEDS: NORVASC PO SCH (09:32)
[2019-02-11] MEDS: SODIUM CHLORIDE FLUSH SYRINGE 10 ML IV SCH ×2 (09:42→21:49)
--- NOTE | 2019-02-11 11:59 | Progress Note ---
Assessment and Plan Cultures: 02/09/19 Blood: no growth in 24 hrs 02/09/19 urine: no growth in 24 hrs HIV negative Influenza rapid: negative A/P: 79-year-old male with a past medical history of HTN, subdural hematoma (05/27), prostate cancer (s/p seed implantation), and GI Bleed who was referred by his PCP, Dr. Longoria on 02/09/19 for altered mental status. Admitted with: 1. SIRS/FUO: evidenced by leukopenia and fever not present on admission, once episode of fever 101.9. Etiology not clear. No leukocytosis. U/A negative. CXR no consolidation. Blood cultures with no growth. Suspect viral etiology. 2. Acute Encephalopathy / confusion: unclear etiology. Much improved today. Head CT shows no evidence of acute ischemic injury, hemorrhage or mass. Will order LP. Acute bacterial meningitis seems unlikely, so d/c Ceftriaxone, Vancomycin, Ampicillin. Continue empiric Acyclovir. LP delayed due to SQ heparin yesterday and no availability of radiologist today. 3. History of subdural hematoma 2017: Head CT shows subdural hematoma no longer present. 4. Type 2 Diabetes: recommend tight glycemic control. Recommendations: -d/arabella other abx: Ceftriaxone, Ampicillin and Vancomycin -continue Acyclovir 10 mg/kg IV every 8 hours -f/u LP tomorrow: CSF cell count with diff, glucose, total protein, viral PCR panel, CSF culture -follow-up blood cultures -f/u RPR D/W Dr. Chauhan. Jake Mcadams MD, FACP [facility] ([facility] C: [phone] O: [phone] F: [phone] Subjective Date of service: 02/11/19 Interval history: No fever. Mental status improving. Denies any complaints. No rash. Tolerating abx. Objective - Exam Narrative Exam: Physical Exam: Constitutional: Alert, cooperative. No acute distress Head, Ears, Nose: Normocephalic, atraumatic. External ears, nose normal Eyes: Conjunctivae/corneas clear. No icterus. No ptosis. Neck: Supple, no meningeal signs Cardiovascular: S1, S2 normal. Respiratory: Good air entry, clear to auscultation bilaterally GI: Soft, non-tender; bowel sounds normal. No peritoneal signs Musculoskeletal: No pedal edema, no cyanosis. Skin: No rash or abscess Hem/Lymphatic: No palpable cervical or supraclavicular nodes. No lymphangitis Psych: Mood ok. Affect normal Neurological: Awake, alert, oriented to time, place and person - Constitutional Vitals: Vital Signs Temp Pulse Resp BP Pulse Ox 98.5 F 86 18 128/73 97 02/10/19 20:18 02/11/19 09:32 02/10/19 22:00 02/11/19 09:32 02/10/19 22:00 Temperature -Last 24 Hours Temperature 98.5 F Temperature 99.4 F Temperature 98.1 F - Labs CBC & Chem 7: 02/10/19 04:33 02/10/19 04:33 Labs: Abnormal lab results 02/10/19 02/11/19 Range/Units 22:07 00:13 POC Glucose 117 H (70-105) C-Reactive Protein 4.40 H (0.00-1.30) mg/dL
--- NOTE | 2019-02-11 13:20 | Progress Note ---
Assessment and Plan Assessment and plan: Patient is a 79 yo man with a history of HTN, subdural hematoma (05/2017), prostate cancer (s/p seed implantation), and GI bleed who presented to [facility] ED by request of his PCP, Dr. Liang Longoria for acute onset of altered mental status/confusion. CT Head showed diffuse cerebral atrophy but no acute abnorma lity, pCXR unremarkable for pneumonia, and UA negative for UTI. On admission WBC 4.4, Creatinine 1.0, Lactic acid 1.80, CK 238, Temperature 98.8, now 101.9, HR 79, BP 143/86. U/A w/o pyuria. Blood cultures in progress. Acute metabolic encephalopathy, workup in progress FUO: consulted ID, started IV empiric Vancomycin/zosyn with close monitoring, rapid flu=negative DM type 2: ssi Neutropenia with SIRS and suspected Sepsis, poa: consult ID to locate source, ordered LP but Radiology did not perform because sq heparin given HTN: norvasc and low salt diet Hx of subdural hematoma 05/27 Change to inpatient status History Interval history: Patient was seen and examined. Follow-up on current diagnosis of AMS. No overnight events reported to me. Patient is confused. Imaging, nursing note, chart, labs and old chart reviewed. Hospitalist Physical - Physical exam Narrative exam: Gen: WDWN, NAD, Awake, Alert, Orientated x 1 HEENT: NCAT, EOMI, PERRL, OP Clear Neck: supple, no adenopathy, no thyromegaly, no JVD CVS/Heart: RRR, normal S1S2, pulses present bilaterally Chest/Lungs: CTA B, Symmetrical chest expansion, good air entry bilaterally GI/Abdomen: soft, NTND, good bowel sounds, no guarding or rebound /Bladder: no suprapubic tenderness, no CVA or paraspinal tenderness Extermity/Skin: no c/c/e, no obvious rash MSK: FROM x 4 Neuro: CN 2-12 grossly intact, no new focal deficits, no meningeal signs Psych: calm - Constitutional Vitals: Temp Pulse Resp BP Pulse Ox 100.1 F H 86 18 128/73 93 02/11/19 07:30 02/11/19 09:32 02/11/19 07:30 02/11/19 09:32 02/11/19 07:30 Results - Labs CBC & Chem 7: 02/10/19 04:33 02/10/19 04:33 Labs: Laboratory Last Values WBC 3.8 K/mm3 (4.5-11.0) L 02/10/19 04:33 RBC 4.86 M/mm3 (3.65-5.03) 02/10/19 04:33 Hgb 15.4 gm/dl (11.8-15.2) H 02/10/19 04:33 Hct 43.9 % (35.5-45.6) 02/10/19 04:33 MCV 90 fl (84-94) 02/10/19 04:33 MCH 32 pg (28-32) 02/10/19 04:33 MCHC 35 % (32-34) H 02/10/19 04:33 RDW 13.4 % (13.2-15.2) 02/10/19 04:33 Plt Count 142 K/mm3 (140-440) 02/10/19 04:33 Lymph % (Auto) 10.2 % (13.4-35.0) L 02/10/19 04:33 [place] % (Auto) 14.5 % (0.0-7.3) H 02/10/19 04:33 Eos % (Auto) 0.1 % (0.0-4.3) 02/10/19 04:33 Baso % (Auto) 2.0 % (0.0-1.8) H 02/10/19 04:33 Lymph # 0.4 K/mm3 (1.2-5.4) L 02/10/19 04:33 [place] # 0.6 K/mm3 (0.0-0.8) 02/10/19 04:33 Eos # 0.0 K/mm3 (0.0-0.4) 02/10/19 04:33 Baso # 0.1 K/mm3 (0.0-0.1) 02/10/19 04:33 Seg Neutrophils % 73.2 % (40.0-70.0) H 02/10/19 04:33 Seg Neutrophils # 2.8 K/mm3 (1.8-7.7) 02/10/19 04:33 PT 15.5 Sec. (12.2-14.9) H 02/09/19 17:42 INR 1.26 (0.87-1.13) H 02/09/19 17:42 APTT 29.2 Sec. (24.2-36.6) 02/09/19 17:42 Sodium 141 mmol/L (137-145) 02/10/19 04:33 Potassium 3.6 mmol/L (3.6-5.0) 02/10/19 04:33 Chloride 105.2 mmol/L (98-107) 02/10/19 04:33 Carbon Dioxide 24 mmol/L (22-30) 02/10/19 04:33 15 mmol/L 02/10/19 04:33 BUN 15 mg/dL (9-20) 02/10/19 04:33 0.9 mg/dL (0.8-1.5) 02/10/19 04:33 Estimated GFR > 60 ml/min 02/10/19 04:33 17 % 02/10/19 04:33 Glucose 154 mg/dL (75-100) H 02/10/19 04:33 POC Glucose 169 (70-105) H 02/11/19 11:42 5.1 % (4-6) 02/10/19 04:33 Lactic Acid 1.80 mmol/L (0.7-2.0) 02/09/19 17:42 Calcium 9.1 mg/dL (8.4-10.2) 02/10/19 04:33 1.10 mg/dL (0.1-1.2) 02/09/19 17:42 AST 34 units/L (5-40) 02/09/19 17:42 ALT 27 units/L (7-56) 02/09/19 17:42 77 units/L (35-129) 02/09/19 17:42 238 units/L (55-170) H 02/09/19 17:42 4.40 mg/dL (0.00-1.30) H 02/11/19 00:13 6.7 g/dL (6.3-8.2) 02/09/19 17:42 4.0 g/dL (3.9-5) 02/09/19 17:42 1.5 % 02/09/19 17:42 Yellow (Yellow) 02/09/19 19:14 Slightly-cloudy (Clear) 02/09/19 19:14 5.0 (5.0-7.0) 02/09/19 19:14 Ur Specific [place] 1.024 (1.003-1.030) 02/09/19 19:14 100 mg/dl mg/dL (Negative) 02/09/19 19:14 Neg mg/dL (Negative) 02/09/19 19:14 Neg mg/dL (Negative) 02/09/19 19:14 Mod (Negative) 02/09/19 19:14 Neg (Negative) 02/09/19 19:14 Neg (Negative) 02/09/19 19:14 2.0 mg/dL (<2.0) 02/09/19 19:14 Ur Leukocyte Esterase Neg (Negative) 02/09/19 19:14 1.0 /HPF (0.0-6.0) 02/09/19 19:14 3.0 /HPF (0.0-6.0) 02/09/19 19:14 U Epithel Cells (Auto) < 1.0 /HPF (0-13.0) 02/09/19 19:14 Calcium Oxalate Crystal 1+ 02/09/19 19:14 Few /HPF 02/09/19 19:14 RPR Nonreactive (Nonreactive) 02/10/19 13:24 HIV 1&2 Antibody Rapid Non react (Non React) 02/10/19 13:24 Non react (Non React) 02/10/19 13:24 Influenza A (Rapid) Negative (Negative) 02/10/19 16:30 Influenza B (Rapid) Negative (Negative) 02/10/19 16:30 Active Medications - Current Medications Current Medications: Generic Name Dose Route Start Last Admin Trade Name Freq PRN Reason Stop Dose Admin Acetaminophen 650 mg 02/09/19 22:52 02/10/19 08:40 Tylenol PO 650 mg Q4H PRN Administration Pain MILD(1-3)/Fever >100.5/SHAH Amlodipine Besylate 5 mg 02/10/19 10:00 02/11/19 09:32 Norvasc PO 5 mg QDAY ADALBERTO Administration Dextrose 50 ml 02/10/19 00:42 D50w (25gm) Syringe IV PRN PRN Hypoglycemia Acyclovir 710 mg/ Sodium 114.2 mls @ 100 mls/hr 02/10/19 14:00 02/11/19 05:00 Chloride IV 100 mls/hr Q8HR ADALBERTO Administration Protocol Insulin Human Regular 0 units 02/10/19 07:30 02/11/19 13:00 Humulin R SUB-Q 2 units ACHS ADALBERTO Administration Protocol Ondansetron HCl 4 mg 02/09/19 22:52 Zofran IV Q8H PRN Nausea And Vomiting Sodium Chloride 10 ml 02/10/19 10:00 02/11/19 09:42 Sodium Chloride Flush Syringe 10 Ml IV 10 ml BID ADALBERTO Administration Sodium Chloride 10 ml 02/09/19 22:52 02/10/19 08:44 Sodium Chloride Flush Syringe 10 Ml IV 10 ml PRN PRN Administration LINE FLUSH Nutrition/Malnutrition Assess - Dietary Evaluation Nutrition/Malnutrition Findings: Nutrition Notes Start: 02/10/19 17:1 2 Freq: Status: Active Protocol: Document 02/10/19 17:12 RM (Rec: 02/10/19 17:15 RM [id number]) Nutrition Notes Need for Assessment generated from: MD Order Initial or Follow up Brief Note Current Diagnosis Hypertension Other Pertinent Diagnosis Prostate CA, GI bleed, AMS, Hx subdural hematoma Current Diet Consisent CHO Labs/Tests A1c 5.1 Pertinent Medications Reviewed Height 5 ft 3 in Weight 71 kg [place] Body Weight (kg) 56.36 BMI 27.7 Subjective/Other Information Consulted for DM diet education. Screened for skin risk. Gustavo 18 points. Pt stated that his appetite is good. Pt had eaten half of lunch by time of visit and planned to eat the rest. DM diet education not needed d /t A1c 5.1. Nutrition Intervention Follow-Up By: 02/12/19 Additional Comments Follow for stable intakes
[2019-02-11] MEDS: TYLENOL PO PRN (21:46)
[2019-02-12] MEDS: NACL 0.9% IV SCH (05:44)
[2019-02-12] MEDS: ZOVIRAX IV SCH (05:44)
[2019-02-12 07:07] LABS: Hematocrit 42.1 % (35.5-45.6); Hemoglobin 14.5 gm/dl (11.8-15.2); Mean Corpuscular HGB Conc 35 % (32-34); Mean Corpuscular Volume 90 fl (84-94); Platelet Count 114 K/mm3 (140-440); Red Blood Count 4.69 M/mm3 (3.65-5.03); Red Cell Distribution Width 13.8 % (13.2-15.2)
[2019-02-12 07:09] LABS: INR 1.09 (0.87-1.13)
[2019-02-12 07:13] LABS: BUN/Creatinine Ratio 16; Blood Urea Nitrogen 13 mg/dL (9-20); Calcium 8.5 mg/dL (8.4-10.2); Hemolysis Index 3
[2019-02-12] MEDS: HumuLIN R SUB-Q SCH ×3 (08:00→16:54)
--- NOTE | 2019-02-12 08:56 | Progress Note ---
Assessment and Plan ICultures: 02/09/19 Blood: no growth in 24 hrs 02/09/19 urine: no growth in 24 hrs HIV negative Influenza rapid: negative RPR: nonreactive A/P: 79-year-old male with a past medical history of HTN, subdural hematoma (05/27), prostate cancer (s/p seed implantation), and GI Bleed who was referred by his PCP, Dr. Longoria on 02/09/19 for altered mental status. Admitted with: 1. SIRS/FUO: leukopenia continuing. Noted low grade fever. Etiology not clear. No leukocytosis. U/A negative. CXR no consolidation. Blood cultures with no growth. Suspect viral etiology. 2. Acute Encephalopathy / confusion: unclear etiology. Much improved today. Head CT shows no evidence of acute ischemic injury, hemorrhage or mass. Acute bacterial meningitis seems unlikely. LP today. CSF wbc 3.8, rbc 228.8, Seg 50.0, monoytes 50.0, glucose 62, total protein 33 which is not c/w menigitis. Discontinue Acyclovir. 3. History of subdural hematoma 2017: Head CT shows subdural hematoma no longer present. 4. Type 2 Diabetes: recommend tight glycemic control. Recommendations: -discontinue Acyclovir 10 mg/kg IV every 8 hours -Can be discharged from ID standpoint - clinically stable -Follow up primary care office in 1 week -Follow-up ID clinic PRN Dr. Oglesby is clinical nutrition manager this weekend [phone], please call for questions. Sadie Delatorre NP [facility] M: [phone] O:[phone] Subjective Date of service: 02/12/19 Interval history: Patient seen and examined. Alert. oriented today. Reports no generalized pain or weakness. No fevers. Objective - Exam Narrative Exam: Constitutional: Alert, cooperative. No acute distress. Head, Ears, Nose: Normocephalic, atraumatic. External ears, nose normal Eyes: Conjunctivae/corneas clear. No icterus. No ptosis. Neck: Supple, no meningeal signs Oral: dentition fair. No thrush. Cardiovascular: S1, S2 normal. Respiratory: Good air entry, clear to auscultation bilaterally GI: Soft, non-tender; bowel sounds normal. No peritoneal signs Musculoskeletal: No pedal edema, no cyanosis. Skin: No rash or abscess. Hem/Lymphatic: No palpable cervical or supraclavicular nodes. No lymphangitis Psych: Mood good. Affect normal Neurological: Awake, alert, oriented. - Constitutional Vitals: Vital Signs Temp Pulse Resp BP Pulse Ox 97.9 F 71 18 134/82 97 02/12/19 07:32 02/12/19 08:23 02/12/19 08:23 02/12/19 07:32 02/12/19 08:23 Temperature -Last 24 Hours Temperature 97.9 F Temperature 98.0 F Temperature 100.2 F Temperature 99.6 F - Labs CBC & Chem 7: 02/12/19 05:53 02/12/19 05:53 Labs: Abnormal lab results 02/11/19 02/11/19 02/11/19 Range/Units 11:42 16:47 21:30 WBC (4.5-11.0) K/mm3 MCHC (32-34) % Plt Count (140-440) K/mm3 Potassium (3.6-5.0) mmol/L Glucose (75-100) mg/dL POC Glucose 169 H 143 H 171 H (70-105) 02/12/19 02/12/19 Range/Units 05:53 05:53 WBC 3.3 L (4.5-11.0) K/mm3 MCHC 35 H (32-34) % Plt Count 114 L (140-440) K/mm3 Potassium 3.3 L (3.6-5.0) mmol/L Glucose 101 H (75-100) mg/dL POC Glucose (70-105)
--- NOTE | 2019-02-12 09:23 | Procedure Note ---
Date of procedure: 02/12/19 Pre-op diagnosis: fever, altered mental status Post-op diagnosis: same Procedure: flouro guided lumbar puncture Findings: none Anesthesia: local Surgeon: PIYUSH SHORE Estimated blood loss: none Pathology: list (4 csf tubes, 4-5cc) Specimen disposition: to lab Condition: stable Disposition: floor
--- NOTE | 2019-02-12 10:03 | Fluoroscopy Report ---
Lumbar puncture INDICATION : Fever, altered mental status PROCEDURE: The risks (including but not limited to bleeding, infection, and spinal headache) and bharati efits were explained to the patient and informed consent was obtained. A time out procedure was perf ormed. The procedure site was prepped and draped in the usual sterile fashion and lidocaine was used for local anesthesia. Under fluoroscopic guidance, a 22-gauge spinal needle was advanced into the L2-3 interlaminar space. The opening pressure was 10 mm H2O which was calculated by adding the length of the needle (9 cm) to the height of the CSF column. 4 separate collection tubes were used to obtain 4-5 of CSF. Samples wer e sent to the lab per the ordering physician specifications for further evaluation. The patient tolerated the procedure well with no complications. IMPRESSION: 1. Successful lumbar puncture as outlined above. 2. Opening pressure was 10 mm H20. Fluoroscopic time: 1.8 minutes Number of fluoroscopic images: 1 Signer Name: Sebastian Russell Jr, MD Signed: 02/12/2019 9:59 AM Workstation Name: [id number]
[2019-02-12 10:05] LABS: Glucose,CSF 62 mg/dL
[2019-02-12] MEDS: NORVASC PO SCH (10:06)
[2019-02-12 10:46] LABS: Appearance,CSF Clear
[2019-02-12 10:47] LABS: Red Blood Cell,CSF 228.8 /mm3 (0-0); White Blood Cell,CSF 3.8 /mm3 (1-10)
[2019-02-12 10:50] LABS: Total Cells Counted 2 /mm3
[2019-02-12] MEDS: SODIUM CHLORIDE FLUSH SYRINGE 10 ML IV SCH ×2 (11:37→21:19)
[2019-02-12] MEDS ORDERED: K-DUR PO ONE (14:48)
--- NOTE | 2019-02-12 14:51 | Progress Note ---
Assessment and Plan Assessment and plan: Patient is a 79 yo man with a history of HTN, subdural hematoma (05/2017), prostate cancer (s/p seed implantation), and GI bleed who presented to [facility] ED by request of his PCP, Dr. Liang Longoria for acute onset of altered mental status/confusion. CT Head showed diffuse cerebral atrophy but no acute abnorma lity, pCXR unremarkable for pneumonia, and UA negative for UTI. On admission WBC 4.4, Creatinine 1.0, Lactic acid 1.80, CK 238, Temperature 98.8, now 101.9, HR 79, BP 143/86. U/A w/o pyuria. Blood cultures in progress. Acute metabolic encephalopathy, etiology unknown FUO: consulted ID, started IV empiric Vancomycin/zosyn with close monitoring, rapid flu=negative DM type 2: ssi Neutropenia with SIRS without organ dysfunction, poa: consulted ID, input noted HTN: norvasc and low salt diet Hx of subdural hematoma 05/27 Change to inpatient status LP unremarkable for meningitis, if patient stays afebrile overnight then discharge home tomorrow History Interval history: Patient was seen and examined. Follow-up on current diagnosis of AMS. No overnight events reported to me. Patient is confused. Imaging, nursing note, chart, labs and old chart reviewed. Hospitalist Physical - Physical exam Narrative exam: Gen: WDWN, NAD, Awake, Alert, Orientated x 1 HEENT: NCAT, EOMI, PERRL, OP Clear Neck: supple, no adenopathy, no thyromegaly, no JVD CVS/Heart: RRR, normal S1S2, pulses present bilaterally Chest/Lungs: CTA B, Symmetrical chest expansion, good air entry bilaterally GI/Abdomen: soft, NTND, good bowel sounds, no guarding or rebound /Bladder: no suprapubic tenderness, no CVA or paraspinal tenderness Extermity/Skin: no c/c/e, no obvious rash MSK: FROM x 4 Neuro: CN 2-12 grossly intact, no new focal deficits, no meningeal signs Psych: calm - Constitutional Vitals: Temp Pulse Resp BP Pulse Ox 97.8 F 87 20 120/72 97 02/12/19 14:04 02/12/19 14:04 02/12/19 14:04 02/12/19 14:04 02/12/19 14:04 Results - Labs CBC & Chem 7: 02/12/19 05:53 02/12/19 05:53 Labs: Laboratory Last Values WBC 3.3 K/mm3 (4.5-11.0) L 02/12/19 05:53 RBC 4.69 M/mm3 (3.65-5.03) 02/12/19 05:53 Hgb 14.5 gm/dl (11.8-15.2) 02/12/19 05:53 Hct 42.1 % (35.5-45.6) 02/12/19 05:53 MCV 90 fl (84-94) 02/12/19 05:53 MCH 31 pg (28-32) 02/12/19 05:53 MCHC 35 % (32-34) H 02/12/19 05:53 RDW 13.8 % (13.2-15.2) 02/12/19 05:53 Plt Count 114 K/mm3 (140-440) L 02/12/19 05:53 Lymph % (Auto) 10.2 % (13.4-35.0) L 02/10/19 04:33 [place] % (Auto) 14.5 % (0.0-7.3) H 02/10/19 04:33 Eos % (Auto) 0.1 % (0.0-4.3) 02/10/19 04:33 Baso % (Auto) 2.0 % (0.0-1.8) H 02/10/19 04:33 Lymph # 0.4 K/mm3 (1.2-5.4) L 02/10/19 04:33 [place] # 0.6 K/mm3 (0.0-0.8) 02/10/19 04:33 Eos # 0.0 K/mm3 (0.0-0.4) 02/10/19 04:33 Baso # 0.1 K/mm3 (0.0-0.1) 02/10/19 04:33 Seg Neutrophils % 73.2 % (40.0-70.0) H 02/10/19 04:33 Seg Neutrophils # 2.8 K/mm3 (1.8-7.7) 02/10/19 04:33 PT 13.8 Sec. (12.2-14.9) 02/12/19 05:53 INR 1.09 (0.87-1.13) 02/12/19 05:53 APTT 29.2 Sec. (24.2-36.6) 02/09/19 17:42 Sodium 141 mmol/L (137-145) 02/12/19 05:53 Potassium 3.3 mmol/L (3.6-5.0) L 02/12/19 05:53 Chloride 102.7 mmol/L (98-107) 02/12/19 05:53 Carbon Dioxide 27 mmol/L (22-30) 02/12/19 05:53 15 mmol/L 02/12/19 05:53 BUN 13 mg/dL (9-20) 02/12/19 05:53 0.8 mg/dL (0.8-1.5) 02/12/19 05:53 Estimated GFR > 60 ml/min 02/12/19 05:53 16 % 02/12/19 05:53 Glucose 101 mg/dL (75-100) H 02/12/19 05:53 POC Glucose 147 (70-105) H 02/12/19 11:48 5.1 % (4-6) 02/10/19 04:33 Lactic Acid 1.80 mmol/L (0.7-2.0) 02/09/19 17:42 Calcium 8.5 mg/dL (8.4-10.2) 02/12/19 05:53 1.10 mg/dL (0.1-1.2) 02/09/19 17:42 AST 34 units/L (5-40) 02/09/19 17:42 ALT 27 units/L (7-56) 02/09/19 17:42 77 units/L (35-129) 02/09/19 17:42 238 units/L (55-170) H 02/09/19 17:42 4.40 mg/dL (0.00-1.30) H 02/11/19 00:13 6.7 g/dL (6.3-8.2) 02/09/19 17:42 4.0 g/dL (3.9-5) 02/09/19 17:42 1.5 % 02/09/19 17:42 Yellow (Yellow) 02/09/19 19:14 Slightly-cloudy (Clear) 02/09/19 19:14 5.0 (5.0-7.0) 02/09/19 19:14 Ur Specific [place] 1.024 (1.003-1.030) 02/09/19 19:14 100 mg/dl mg/dL (Negative) 02/09/19 19:14 Neg mg/dL (Negative) 02/09/19 19:14 Neg mg/dL (Negative) 02/09/19 19:14 Mod (Negative) 02/09/19 19:14 Neg (Negative) 02/09/19 19:14 Neg (Negative) 02/09/19 19:14 2.0 mg/dL (<2.0) 02/09/19 19:14 Ur Leukocyte Esterase Neg (Negative) 02/09/19 19:14 1.0 /HPF (0.0-6.0) 02/09/19 19:14 3.0 /HPF (0.0-6.0) 02/09/19 19:14 U Epithel Cells (Auto) < 1.0 /HPF (0-13.0) 02/09/19 19:14 Calcium Oxalate Crystal 1+ 02/09/19 19:14 Few /HPF 02/09/19 19:14 Clear 02/12/19 Unknown Colorless 02/12/19 Unknown 3.8 /mm3 (1-10) 02/12/19 Unknown 228.8 /mm3 (0-0) 02/12/19 Unknown CSF Seg Neutrophils 50.0 % (0-6) 02/12/19 Unknown Not Reportable 02/12/19 Unknown CSF Reactive Lymphs Not Reportable 02/12/19 Unknown 50.0 % (15-45) 02/12/19 Unknown Not Reportable 02/12/19 Unknown Not Reportable 02/12/19 Unknown Less than 10 02/12/19 Unknown C 02/12/19 Unknown 62 mg/dL 02/12/19 Unknown 33 mg/dL 02/12/19 Unknown RPR Nonreactive (Nonreactive) 02/10/19 13:24 HIV 1&2 Antibody Rapid Non react (Non React) 02/10/19 13:24 Non react (Non React) 02/10/19 13:24 Influenza A (Rapid) Negative (Negative) 02/10/19 16:30 Influenza B (Rapid) Negative (Negative) 02/10/19 16:30 Active Medications - Current Medications Current Medications: Generic Name Dose Route Start Last Admin Trade Name Freq PRN Reason Stop Dose Admin Acetaminophen 650 mg 02/09/19 22:52 02/11/19 21:46 Tylenol PO 650 mg Q4H PRN Administration Pain MILD(1-3)/Fever >100.5/SHAH Amlodipine Besylate 5 mg 02/10/19 10:00 02/12/19 10:06 Norvasc PO 5 mg QDAY ADALBERTO Administration Dextrose 50 ml 02/10/19 00:42 D50w (25gm) Syringe IV PRN PRN Hypoglycemia Insulin Human Regular 0 units 02/10/19 07:30 02/12/19 12:10 Humulin R SUB-Q Not Given ACHS [facility] Protocol Ondansetron HCl 4 mg 02/09/19 22:52 Zofran IV Q8H PRN Nausea And Vomiting Sodium Chloride 10 ml 02/10/19 10:00 02/12/19 11:37 Sodium Chloride Flush Syringe 10 Ml IV 10 ml BID ADALBERTO Administration Sodium Chloride 10 ml 02/09/19 22:52 02/10/19 08:44 Sodium Chloride Flush Syringe 10 Ml IV 10 ml PRN PRN Administration LINE FLUSH Nutrition/Malnutrition Assess - Dietary Evaluation Nutrition/Malnutrition Findings: Nutrition Notes Start: 02/10/19 17: 12 Freq: Status: Active Protocol: Document 02/10/19 17:12 RM (Rec: 02/10/19 17:15 RM [id number]) Nutrition Notes Need for Assessment generated from: MD Order Initial or Follow up Brief Note Current Diagnosis Hypertension Other Pertinent Diagnosis Prostate CA, GI bleed, AMS, Hx subdural hematoma Current Diet Consisent CHO Labs/Tests A1c 5.1 Pertinent Medications Reviewed Height 5 ft 3 in Weight 71 kg [place] Body Weight (kg) 56.36 BMI 27.7 Subjective/Other Information Consulted for DM diet education. Screened for skin risk. Gustavo 18 points. Pt stated that his appetite is good. Pt had eaten half of lunch by time of visit and planned to eat the rest. DM diet education not needed d /t A1c 5.1. Nutrition Intervention Follow-Up By: 02/12/19 Additional Comments Follow for stable intakes
[2019-02-13] MEDS: HumuLIN R SUB-Q SCH ×3 (01:55→13:38)
[2019-02-13 08:53] VITALS: BP 134/81
--- NOTE | 2019-02-13 10:24 | Discharge Summary ---
Providers - Providers Date of Admission: 02/10/19 09:15 Date of discharge: 02/13/19 Attending physician: NILO AYERS 02/10/19 00:42 Consult to Dietitian/Nutrition [CONS] Routine Physician Instructions: Reason For Exam: Reason for Consult: Diet education 02/10/19 09:16 Consult to Physician [CONS] Routine Comment: Consulting Provider: AGUSTIN MACIAS Physician Instructions: Reason For Exam: ams and fever [facility] Condition: Stable Hospital course: Patient is a 79 yo man with a history of HTN, subdural hematoma (05/2017), prostate cancer (s/p seed implantation), and GI bleed who presented to [facility] ED by request of his PCP, Dr. Liang Longoria for acute onset of altered mental status/confusion. CT Head showed diffuse cerebral atrophy but no acute abnormality, pCXR unremarkable for pneumonia, and UA negative for UTI. On admission WBC 4.4, Creatinine 1.0, Lactic acid 1.80, CK 238, Temperature 98.8, now 101.9, HR 79, BP 143/86. U/A w/o pyuria. Blood cultures in progress. Acute metabolic encephalopathy, resolved FUO: consulted ID, input noted, treated successfully with IV abx, rapid flu=negative, LP unremarkable for meningitis, afebrile overnight, discharge home DM type 2: ssi Neutropenia with SIRS without organ dysfunction, poa: consulted ID, input noted HTN: norvasc and low salt diet Hx of subdural hematoma 05/2017 Change to inpatient status Disposition: [id number]/[place]-06 HOME UNDER HOME [facility] Time spent for discharge: 31 minutes Core Measure Documentation - Palliative Care Palliative Care/ Comfort Measures: Not Applicable - Core Measures Any of the following diagnoses?: none - VTE Discharge Requirements Deep Vein Thrombosis/Pulmonary Embolism Present on Admission: No Has pt received <5 days of overlap therapy or INR<2.0: No Anticoagulant overlap therapy prescribed at discharge: No Contraindication No Overlap Therapy order at DC: Not Indicated Exam - Physical Exam Narrative exam: Gen: WDWN, NAD, Awake, Alert, Orientated x 2.5 HEENT: NCAT, EOMI, PERRL, OP Clear Neck: supple, no adenopathy, no thyromegaly, no JVD CVS/Heart: RRR, normal S1S2, pulses present bilaterally Chest/Lungs: CTA B, Symmetrical chest expansion, good air entry bilaterally GI/Abdomen: soft, NTND, good bowel sounds, no guarding or rebound /Bladder: no suprapubic tenderness, no CVA or paraspinal tenderness Extermity/Skin: no c/c/e, no obvious rash MSK: FROM x 4 Neuro: CN 2-12 grossly intact, no new focal deficits, no meningeal signs Psych: calm - Constitutional Vitals: Temp Pulse Resp BP Pulse Ox 99.2 F 65 18 134/81 95 02/13/19 07:09 02/13/19 07:09 02/13/19 07:09 02/13/19 07:09 02/13/19 07:09 Plan Activity: up only with assistance, fall precautions, other (no strenous activity ) Diet: low salt, diabetic Special Instructions: record blood sugar diary Follow up with: AGUSTIN MACIAS MD [Staff Physician] - 7 Days AZRA COTTRELL MD [Staff Physician] - 7 Days Prescriptions: Acetaminophen [Acetaminophen TAB] 2 tab PO Q6H PRN #15 tablet PRN Reason: Pain MILD(1-3)/Fever >100.5/SHAH amLODIPine [Norvasc] 5 mg PO QDAY #30 tablet
[2019-02-13] MEDS: NORVASC PO SCH (10:43)
[2019-02-13] MEDS: SODIUM CHLORIDE FLUSH SYRINGE 10 ML IV SCH (10:43)
== END 2019-02-13 14:40 | disposition home or self-care (01) | DRG 71 ==
LOC: ED 16:58 → 2B-ACE 22:52 → OBSVTOIN 02-10 09:15
PROVIDERS: ADMIT Internal Medicine; ATTEND Internal Medicine
PROC: 009U3ZZ Drainage of Spinal Canal, Percutaneous Approach (ICD-10-PCS; principal; 2019-02-12)
PROC: B01B1ZZ Fluoroscopy of Spinal Cord using Low Osmolar Contrast (ICD-10-PCS; 2019-02-12)
DX: G93.41 Metabolic encephalopathy (principal); M62.82 Rhabdomyolysis; R65.10 Systemic inflammatory response syndrome (SIRS) of non-infectious origin without acute organ dysfunction; E86.0 Dehydration; I10 Essential (primary) hypertension; C61 Malignant neoplasm of prostate; E11.9 Type 2 diabetes mellitus without complications; G31.9 Degenerative disease of nervous system, unspecified; D70.9 Neutropenia, unspecified; Z82.49 Family history of ischemic heart disease and other diseases of the circulatory system; Z79.84 Long term (current) use of oral hypoglycemic drugs; R50.9 Fever, unspecified
CPT/HCPCS: 36415; 62270; 70450; 71045; 77003; 80048; 80053; 81001; 82140; 82550; 82947; 82962; 83036; 84160; 85025; 85027; 85610; 85730; 86140; 86592; 87040; 87086; 87116; 87400; 87498; 87799; 87806; 89051; 93005; 93010; 96374; 96375; 99285; G0378; J0133; J0290; J0696; J1630; J1644; J1815; J2060; J2543; J3370; J7030; J7050

== ENCOUNTER 2019-09-09 12:29 | Outpatient (CLI) | payer MEDICARE ==
[2019-09-09 12:52] LABS: Hematocrit 48.4 % (35.5-45.6); Hemoglobin 16.3 gm/dl (11.8-15.2); Mean Corpuscular HGB Conc 34 % (32-34); Mean Corpuscular Volume 91 fl (84-94); Platelet Count 298 K/mm3 (140-440); Red Blood Count 5.34 M/mm3 (3.65-5.03); Red Cell Distribution Width 13.3 % (13.2-15.2)
[2019-09-09 13:17] LABS: Alanine Aminotransferase 25 units/L (7-56); Albumin 4.4 g/dL (3.9-5); BUN/Creatinine Ratio 14; Blood Urea Nitrogen 14 mg/dL (9-20); Calcium 9.9 mg/dL (8.4-10.2); Hemolysis Index 17
== END 2019-09-09 12:30 | disposition home or self-care (01) ==
LOC: LAB 12:29
PROVIDERS: ATTEND Specialist
DX: F02.80 Dementia in other diseases classified elsewhere, unspecified severity, without behavioral disturbance, psychotic disturbance, mood disturbance, and anxiety (principal)
CPT/HCPCS: 36415; 80053; 85027